=== PATIENT | male | born 1995 | race Caucasian/White ===

== ENCOUNTER 2018-05-23 19:25 | Emergency (ER) | payer OTHER ==
[2018-05-23 19:57] VITALS: BP 126/91
[2018-05-23] MEDS ORDERED: Lidocaine 2% W/EPI 1:100,000* 20 ML MDV INJ ONE (20:09)
--- NOTE | 2018-05-23 20:17 | UC ---
Skin Complaint HPI - HPI Summary HPI Summary: abscess lower abd x 1 week now with stys left eye - History of Current Complaint Chief Complaint: UCSkin Time Seen by Provider: 05/23/18 19:40 Stated Complaint: PERSONAL/ LEFT EYE REDNESS Hx Obtained From: Patient Onset/Duration: Gradual Onset, Lasting Days Timing: Constant Onset Severity: Mild Current Severity: Moderate Pain Intensity: 6 Pain Scale Used: 0-10 Numeric Location: Discrete Character: Pruritus, Pain, Redness, Raised Aggravating Factor(s): Touch Alleviating Factor(s): Nothing Associated Signs & Symptoms: Positive: Tenderness - Allergy/Home Medications Allergies/Adverse Reactions: Allergies Allergy/AdvReac Type Severity Reaction Status Date / Time dust Allergy Congestion Uncoded 05/23/18 19:57 Home Medications: Home Medications Ibuprofen TAB* [Motrin TAB* 600 MG] 600 mg PO DAILY PRN 05/23/18 [History Confirmed 05/23/18] PMH/Surg Hx/FS Hx/Imm Hx Previously Healthy: Yes - Surgical History Surgical History: None - Family History Known Family History: Positive: Hypertension - Social History Alcohol Use: Occasionally Substance Use Type: Excessive Caffeine Smoking Status (MU): Former Smoker - Immunization History Most Recent Tetanus Shot: UNKNOWN Review of Systems All Other Systems Reviewed And Are Negative: Yes Constitutional: Positive: Negative Skin: Positive: Negative Eyes: Positive: Negative ENT: Positive: Negative Respiratory: Positive: Negative Cardiovascular: Positive: Negative Gastrointestinal: Positive: Negative Genitourinary: Positive: Negative Motor: Positive: Negative Neurovascular: Positive: Negative Musculoskeletal: Positive: Negative Neurological: Positive: Negative Psychological: Positive: Negative Physical Exam Triage Information Reviewed: Yes Appearance: Well-Appearing, No Pain Distress, Well-Nourished Vital Signs: Initial Vital Signs Temp 98.8 F 05/23/18 19:44 Pulse 96 05/23/18 19:44 Resp 20 05/23/18 19:44 BP 126/91 05/23/18 19:44 Pulse Ox 99 05/23/18 19:44 Vital Signs Reviewed: Yes Eyes: Positive: Conjunctiva Clear ENT: Positive: Hearing grossly normal. Negative: Nasal congestion, Nasal drainage Neck: Positive: Supple, Nontender, No Lymphadenopathy Respiratory: Positive: Lungs clear, Normal breath sounds, No respiratory distress, No accessory muscle use Cardiovascular: Positive: RRR, No Murmur Musculoskeletal: Positive: ROM Intact, No Edema Neurological: Positive: Alert Skin Exam: Other - see image Images Head: 1 - sty upper lid with lid cellulitis 2 - sty lower lid with lid cellulitis Front/Back of Body, Lg ([place]): 1 - 2x 2 cm abscess with overlying cellulitis Procedures - Procedure Summary Procedure Summary: INCISION AND DRAINAGE ABSCESS LOCATION : LOWER ABDOMINAL WALL procedure explained questions answered TIME OUT STERILE PREP ANEST WITH 2 CC 2% LIDO WITH EPI INCISION MADE WITH 11 BLADE 1 CC PUS EXPRESSED STERILE DRESSING APPLIED CULTURE OBTAINED PT TOLERATED PROCEDURE WELL Course/Dx - Diagnoses Provider Diagnosis: Abscess of skin of abdomen, Hordeolum externum left upper eyelid, Hordeolum externum left lower eyelid Discharge - Sign-Out/Discharge Documenting (check all that apply): Patient Departure All imaging exams completed and their final reports reviewed: No Studies - Discharge Plan Condition: Stable Disposition: HOME Prescriptions: Ibuprofen TAB* [Motrin TAB*] 600 mg PO QID PRN #40 tab PRN Reason: Pain Sulfamethox/Trimethoprim DS* [Bactrim DS 800/160 TAB*] 1 tab PO BID #12 tab Patient Education Materials: Stye (ED), Abscess (ED) Referrals: Pool Fabian MD [Primary Care Provider] - 5 Days Additional Instructions: warm compresses culture pending recheck in 2 days if not markedly improved recheck if symptoms worsen - Billing Disposition and Condition Condition: STABLE Disposition: Home
[2018-05-23] MEDS ORDERED: Ibuprofen TAB* 600 MG PO ONE ×2 (20:44→20:45)
[2018-05-23] MEDS ORDERED: Sulfamethox/Trimethoprim DS 800/160* TAB PO ONE ×2 (20:44)
[2018-05-23] MEDS ORDERED: Erythromycin OPTH OINT* APPLIC OINT LEFT EYE ONE (20:46)
--- NOTE | 2018-05-26 11:01 | UC ---
- Progress Note Progress Note: Reviewed cx results as available from 05/23/18 - MRSA positive. Final cx / sens pending. RN to call pt to advise of MRSA precautions. Continue Bactrim unless we or pcp advises otherwise. Seek medical attention for worse or new problems. Course/Dx - Diagnoses Provider Diagnoses: Abscess of skin of abdomen, Hordeolum externum left upper eyelid, Hordeolum externum left lower eyelid Discharge - Sign-Out/Discharge Documenting (check all that apply): Post-Discharge Follow Up All imaging exams completed and their final reports reviewed: No Studies - Discharge Plan Condition: Stable Disposition: HOME Prescriptions: Ibuprofen TAB* [Motrin TAB*] 600 mg PO QID PRN #40 tab PRN Reason: Pain Sulfamethox/Trimethoprim DS* [Bactrim DS 800/160 TAB*] 1 tab PO BID #12 tab Patient Education Materials: Stye (ED), Abscess (ED) Referrals: Pool Fabian MD [Primary Care Provider] - 5 Days Additional Instructions: warm compresses culture pending recheck in 2 days if not markedly improved recheck if symptoms worsen - Billing Disposition and Condition Condition: STABLE Disposition: Home
== END 2018-05-23 21:07 | disposition home or self-care (01) ==
LOC: UCCORT 19:25
DX: L02.211 Cutaneous abscess of abdominal wall (principal); B95.62 Methicillin resistant Staphylococcus aureus infection as the cause of diseases classified elsewhere; H00.015 Hordeolum externum left lower eyelid; H00.014 Hordeolum externum left upper eyelid; H00.035 Abscess of left lower eyelid; H00.034 Abscess of left upper eyelid; Z91.048 Other nonmedicinal substance allergy status; Z87.891 Personal history of nicotine dependence
CPT/HCPCS: 10060; 87070; 87077; 87186; 87205; 87640; 87641; 99203; A9270-GY; G0463